=== PATIENT | male | born 1970 | race Caucasian/White ===

== ENCOUNTER 2021-04-22 14:55 | Emergency (ER) | payer OTHER ==
[~2021-04-22] VITALS: Ht 177.8 cm; Wt 85.0 kg
[2021-04-22] MEDS ORDERED: dexamethasone sod phosphate 10mg/ml inj IV STA (15:07)
[2021-04-22] MEDS ORDERED: ketorolac trometh. 30mg/ml inj. IV ONE (15:10)
[2021-04-22] MEDS ORDERED: metoclopramide 5 mg/ml inj IV ONE (15:10)
[2021-04-22] MEDS ORDERED: normal saline 1000ML IV soln IV ONE (15:10)
[2021-04-22] MEDS ORDERED: LORazepam 2 mg/ml vial IV ONE (15:15)
[2021-04-22 15:29] VITALS: BP 157/107
== END 2021-04-22 17:18 | disposition home or self-care (01) ==
LOC: ER 14:55
DX: G44.59 Other complicated headache syndrome (principal); H93.12 Tinnitus, left ear; F41.9 Anxiety disorder, unspecified
CPT/HCPCS: 96361; 96374; 96375; 99284; J1100; J1885; J2060; J2765; J7030